=== PATIENT | male | born 1930 | race Caucasian/White ===

== ENCOUNTER 2016-07-02 13:02 | Outpatient (CLI) | payer OTHER ==
--- NOTE | 2016-07-02 14:44 | DIAGNOSTIC IMAGING REPORT ---
PROCEDURE: XR SINUSES 3 VIEWS OR MORE INDICATION: CHRONIC COUGH TECHNIQUE: Three views of the sinuses COMPARISON: None. FINDINGS: The sphenoid ethmoid frontal and maxillary sinuses are clear. IMPRESSION: 1. Clear sinuses.
== END 2016-07-02 23:00 ==
LOC: XR SRH 13:02
DX: R05 Cough (principal)

== ENCOUNTER 2016-07-08 10:35 | Outpatient (CLI) | payer OTHER ==
--- NOTE | 2016-07-08 11:22 | DIAGNOSTIC IMAGING REPORT ---
PROCEDURE: XR CHEST 2 VIEW INDICATION: DISORDER OF LUNG TECHNIQUE: PA and lateral views. COMPARISON: None. FINDINGS: Lungs are clear. Heart and mediastinum are normal. Thorax is normal. IMPRESSION: 1. Negative chest.
== END 2016-07-08 23:00 ==
LOC: XR SRH 10:35
DX: J98.4 Other disorders of lung (principal)